=== PATIENT | female | born 1990 | race Caucasian/White ===

== ENCOUNTER → 2020-04-25 | Outpatient (REF) | payer OTHER ==
[2020-04-25 13:34] LABS: MEAN CORPUSCULAR HEMOGLOBIN 33.3 pg (27.0-33.0); MEAN CORPUSCULAR HGB CONC 34.1 g/dl (32.0-36.5); MEAN CORPUSCULAR VOLUME 97.4 fl (80.0-96.0); PLATELET COUNT, AUTOMATED 232 10^3/uL (150-450); RED BLOOD COUNT 4.21 10^6/uL (4.00-5.40); WHITE BLOOD COUNT 9.7 10^3/uL (4.0-10.0)
[2020-04-25 14:28] LABS: HEPATITIS C VIRUS ABY INDEX 0.1 INDEX (<0.8); HIV 1&2 SCREEN CENTAUR NEGATIVE (NEGATIVE)
== END ==
LOC: M PLALAB 10:47
PROVIDERS: ATTEND Advanced Practice Midwife
DX: Z3A.09 9 weeks gestation of pregnancy (principal)

== ENCOUNTER → 2020-05-24 | Outpatient (CLI) | payer OTHER | LOC: M PLALAB 09:48 | PROVIDERS: ATTEND Advanced Practice Midwife | DX: Z34.82 Encounter for supervision of other normal pregnancy, second trimester (principal); Z3A.00 Weeks of gestation of pregnancy not specified | CPT/HCPCS: 36415; 90686; G0123; G0463 ==

== ENCOUNTER → 2020-07-02 | Outpatient (CLI) | payer OTHER ==
--- NOTE | 2020-07-03 09:14 | REP ---
INDICATION: ANATOMY COMPARISON: None. TECHNIQUE: Transabdominal obstetrical ultrasound with color Doppler evaluation. FINDINGS: Examination demonstrates a single live intrauterine in cephalic presentation. motion is identified by technologist. Placenta is noted anterior and grade 1 without evidence for placenta previa or abruption. Amniotic fluid volume is normal. Cervix measures 3.8 cm in length and appears closed.. Gestational age by current measurements 19 weeks 4 days with ESPERANZA 11/22/2020. FHR equals 146 beats per minute. BPD: 4.5 cm 19 weeks 4 days HC: 16.7 cm there is 19 weeks 3 days AC: 14.0 cm 19 weeks 3 days FL: 3.2 cm 20 weeks 0 days HL: 3.0 cm there is 19 weeks 6 days HC/AC: 1.19 Estimated weight 306 grams (48thpercentile). Anatomical assessment demonstrates normal structures including cranium, choroid plexus, cavum, cerebellum/posterior fossa, facial features, lungs, four-chamber heart/ventricular outflow tracts, diaphragm, stomach, cord insertion/three-vessel cord, kidneys/bladder, spine, and extremities. IMPRESSION: Single live intrauterine in cephalic presentation demonstrating appropriate estimated weight. Anatomical assessment is complete and normal. No gross abnormalities are identified. <Electronically signed by Deo No > 07/03/20 [id number]
== END ==
LOC: M WHC 10:55
PROVIDERS: ATTEND Advanced Practice Midwife
DX: Z34.92 Encounter for supervision of normal pregnancy, unspecified, second trimester (principal); Z3A.19 19 weeks gestation of pregnancy

== ENCOUNTER → 2020-08-20 | Outpatient (REF) | payer OTHER ==
[2020-08-20 14:09] LABS: HEMOGLOBIN 12.8 g/dl (12.0-15.5); MEAN CORPUSCULAR HEMOGLOBIN 32.4 pg (27.0-33.0); MEAN CORPUSCULAR HGB CONC 32.8 g/dl (32.0-36.5); MEAN CORPUSCULAR VOLUME 98.7 fl (80.0-96.0); PLATELET COUNT, AUTOMATED 204 10^3/uL (150-450); RED BLOOD COUNT 3.95 10^6/uL (4.00-5.40); WHITE BLOOD COUNT 11.8 10^3/uL (4.0-10.0)
== END ==
LOC: M PLALAB 08:23
PROVIDERS: ATTEND Specialist
DX: Z00.00 Encounter for general adult medical examination without abnormal findings (principal)

== ENCOUNTER → 2020-09-18 | Outpatient (CLI) | payer OTHER ==
--- NOTE | 2020-09-19 07:58 | REP ---
INDICATION: HYPERTENSION/GROWTH COMPARISON: 07/02/2020 TECHNIQUE: Transabdominal obstetrical ultrasound with color Doppler evaluation. FINDINGS: Examination demonstrates a single live intrauterine in cephalic presentation. motion is identified by technologist. Placenta is noted anterior and grade 1 without evidence for placenta previa or abruption. Amniotic fluid volume is normal. Cervix measures 4.0 cm in length and appears closed.. Gestational age by LMP and 1st U/S 30 weeks 5 days with ESPERANZA 11/22/2020. Gestational age by current measurements 30 weeks 2 days with ESPERANZA 11/25/2020. FHR equals 140 beats per minute. Estimated weight 1536 grams (27thpercentile). DEBO: 19.2 cm (8.8-23.7) Umbilical artery SD ratio: 2.44, 2.76 (1.91-4.01) IMPRESSION: Single live intrauterine in cephalic presentation demonstrating appropriate estimated weight and growth. <Electronically signed by Deo No > 09/19/20 [id number]
== END ==
LOC: M WHC 13:57
PROVIDERS: ATTEND Obstetrics & Gynecology
DX: O10.913 Unspecified pre-existing hypertension complicating pregnancy, third trimester (principal); Z3A.00 Weeks of gestation of pregnancy not specified

== ENCOUNTER → 2020-10-08 | Outpatient (CLI) | payer OTHER ==
--- NOTE | 2020-10-08 08:39 | REP ---
INDICATION: ESSENTIAL HYPERTENSION,GROWTH,DEBO. TECHNIQUE: Transabdominal FINDINGS: Multiple ultrasonographic images of the gravid uterus shows a single living intrauterine gestation in the cephalic presentation. Doppler interrogation of the heart shows a heart rate of 133 beats per minute. Doppler interrogation of the umbilical artery shows an AB ratio of 2.73. This is within the normal range. The placenta is anterior and not low lying. The calculated amniotic fluid index is 14.5 with an expected range 8.2 to 24.6 BPD: 8.5 cm 34 weeks 2 days HC: 31.0 cm 34 weeks 4 days AC: 29.2 cm 33 weeks 1 day FL: 6.4 cm 32 weeks 6 days Estimated weight is 2171 g which is at the 39th percentile for 33 week 3 day gestational age. IMPRESSION: Single living intrauterine gestation as described above with an estimated gestational age of 33 weeks 5 days via composite criteria and an estimated date of delivery of 11/21/2020 by today's exam. <Electronically signed by Charanjit Conti > 10/08/20 [id number]
== END ==
LOC: M WHC 06:59
PROVIDERS: ATTEND Advanced Practice Midwife
DX: O10.013 Pre-existing essential hypertension complicating pregnancy, third trimester (principal)

== ENCOUNTER → 2020-10-23 | Outpatient (REF) | payer OTHER | LOC: M SFHCWAGY 12:53 | PROVIDERS: ATTEND Advanced Practice Midwife | DX: O10.019 Pre-existing essential hypertension complicating pregnancy, unspecified trimester (principal); Z3A.00 Weeks of gestation of pregnancy not specified ==

== ENCOUNTER → 2020-10-29 | Outpatient (CLI) | payer OTHER ==
--- NOTE | 2020-10-29 19:37 | REP ---
INDICATION: GROWTH/DEBO. ESPERANZA 23 November 2020. COMPARISON: Comparison study October 08, 2020.. TECHNIQUE: Transabdominal obstetric sonography. FINDINGS: Scanning through the gravid uterus demonstrates a viable single intrauterine gestation in cephalic lie. motion is observed and heart rate is recorded at 138 beats per minute. A anterior placenta is seen, grade 1, without evidence of placenta previa. Closed cervical length is measured at 3.4 cm transabdominally. No extrauterine abnormality is observed. Amniotic fluid is subjectively normal. DEBO is normal at 17.8 cm.. . Biometry chart: BPD 8.8 cm, 35 weeks 5 days Head circumference 31.7 cm, 35 weeks 5 days Abdominal circumference 32.3 cm, 36 weeks 2 days Femur length 6.9 cm, 35 weeks 2 days Humeral length 6.1 cm, 35 weeks 1 day HC AC ratio normal and 0.98 Cephalic index normal 0.79 Estimated weight 2786 g, 6 lb 2 oz, 38th percentile for 36 weeks 3 days SD ratio in the umbilical cord artery by Doppler is normal at 2.87. IMPRESSION: Viable single intrauterine gestation at 35 weeks 4 days by today's composite sonographic criteria. ESPERANZA by today's sonography November 29, 2020.. No complication identified. Expected gestational age estimate based on given ESPERANZA of November 23, 2020 is 36 weeks 3 days. <Electronically signed by Lamine Addison > 10/29/20 193
== END ==
LOC: M WHC 07:43
PROVIDERS: ATTEND Advanced Practice Midwife
DX: O10.013 Pre-existing essential hypertension complicating pregnancy, third trimester (principal); Z3A.36 36 weeks gestation of pregnancy

== ENCOUNTER → 2020-11-02 | Outpatient (CLI) | payer OTHER | LOC: M LABSMTC 09:35 | PROVIDERS: ATTEND Specialist | DX: Z20.828 Contact with and (suspected) exposure to other viral communicable diseases (principal); Z11.59 Encounter for screening for other viral diseases ==

== ENCOUNTER 2020-11-10 10:03 | Inpatient (IN) | payer OTHER ==
[~2020-11-10] VITALS: Ht 162.6 cm; Wt 107.0 kg
[2020-11-10] VITALS (10 sets, daily range): BP systolic 123–137; BP diastolic 69–91
[2020-11-10 10:46] LABS: HEMATOCRIT 36.5 % (36.0-47.0); HEMOGLOBIN 12.6 g/dl (12.0-15.5); MEAN CORPUSCULAR HEMOGLOBIN 31.8 pg (27.0-33.0); MEAN CORPUSCULAR HGB CONC 34.5 g/dl (32.0-36.5); MEAN CORPUSCULAR VOLUME 92.2 fl (80.0-96.0); PLATELET COUNT, AUTOMATED 218 10^3/uL (150-450); RED BLOOD COUNT 3.96 10^6/uL (4.00-5.40)
[2020-11-10] MEDS ORDERED: PRENTAB9 PO (10:53)
[2020-11-10] MEDS ORDERED: OMEP10CASR PO (10:54)
[2020-11-10] MEDS ORDERED: LABE100T5 PO (10:54)
[2020-11-10] MEDS ORDERED: ASPI81CH33 PO (10:54)
[2020-11-10] MEDS ORDERED: LACTATED RINGER'S 1000 ML IV STA (12:35)
[2020-11-10] MEDS ORDERED: OXYTOCIN DRIP 30 UNITS in IV 1 EA IV PRN ×6 (12:35)
[2020-11-10] MEDS ORDERED: OXYTOCIN INJ 10 UNITS/ML VIAL (J2590) IV PRN (12:35)
[2020-11-10] MEDS ORDERED: TRANEXAMIC ACID INJection 1,000 MG in NS 100 ML IV PRN (12:35)
[2020-11-10] MEDS ORDERED: LR 1,000 ML IV SCH (12:35)
[2020-11-10] MEDS ORDERED: LIDOCAINE 1% MDV 20ML VIAL INFIL PRN (12:35)
[2020-11-10] MEDS ORDERED: OXYTOCIN INJ 10 UNITS/ML VIAL (J2590) IM PRN (12:35)
[2020-11-10] MEDS ORDERED: CARBOPROST TROMETHAMINE 250 MCG/ML AMP IM PRN (12:35)
[2020-11-10] MEDS: miSOPROStol 50MCG 1/2 TABLET SL SCH ×2 (12:50→20:00)
--- NOTE | 2020-11-10 12:59 | HPEPDOC ---
Obstetrical History & Physical General Date of Admission November 10, 2020 at 10:03 History of Present Illness 30-year-old at 38+1 weeks gestation. Presents for an induction of labor. Indication for induction: CHTN. She denies vaginal bleeding, loss of fluid or painful, frequent uterine contractions. She reports regular movement. She denies headache, visual changes, right upper quadrant pain, shortness of breath or chest pain. 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 OB: G1 Sochx: No tobacco, alcohol or drug use FamHx: HTN labs: Blood type B+ , antibody screen negative, HepBsAg neg, HIV neg, rubella immune, Hep C antibody negative, RPR nonreactive, CT/GC neg, urine cu lture negative, 1 hour glucose challenge test , GBS negative Imaging: No or placental anomalies, EFW: 38th percentile on 10/29/20 Vital Signs Date Time Temp Pulse Resp B/P (MAP) Pulse Ox O2 Delivery O2 Flow Rate FiO2 11/10/20 10:18 98.1 117 18 135/86 (102) Past Medical History Allergies Coded Allergies: sulfamethoxazole (Verified Allergy, Severe, hives, 11/10/20) trimethoprim (Verified Allergy, Severe, hives, 11/10/20) Medications Scheduled Aspirin (Aspirin) 81 Mg Tab.chew, 81 MG PO DAILY for pain Labetalol HCl (Labetalol HCl) 100 Mg Tablet, 1 TAB PO BID Omeprazole (Omeprazole) 10 Mg Capsule.dr, 10 MG PO DAILY No.137/Iron/Folic Acd ( Vitamin Tablet) 1 Each Tablet, 1 TAB PO DAILY Physical Examination Physical Examination GENERAL: Alert and oriented times three. ABDOMEN: Gravid and non-tender to touch. FETUS: Is vertex (VTX) by sterile vaginal examination (SVE), fetus is vertex (VTX) by Ernesto. HEART RATE: Regular rate and rhythm. LUNGS: Clear to auscultation (CTA). EXTREMITIES: No edema. No clonus. SVE: 1 cm, 25% effaced, -3 station, posterior. No bloody show, cephalic, intact EFM: Category 1 [place]: Irregular/rare contraction pattern Vital Signs/I&O Vital Signs Date Time Temp Pulse Resp B/P (MAP) Pulse Ox O2 Delivery O2 Flow Rate FiO2 11/10/20 10:18 98.1 117 18 135/86 (102) Laboratory Data 24H LABS Laboratory Tests 2 11/10/20 10:14: Serology Scanned Report Hepatitis B Testing 11/10/20 10:32: Nucleated Red Blood Cells % (auto) 0.0 CBC/BMP Laboratory Tests 11/10/20 10:32 Assessment/Plan Assessment 30-year-old G1, P0 at 38+1weeks gestation. Chronic hypertension. Reassuring status. Plan Admit and orient. [facility] Consultant and consent. Labs with preeclamptic panel Counseled on induction of labor; start with cervical ripening Anticipate C-S as appropriate. JENNIFER DAVENPORT DO November 10, 2020 12:59
[2020-11-10 19:29] LABS: ALT/SGPT 21 U/L (12-78); BILIRUBIN,TOTAL 0.4 MG/DL (0.2-1.0); CREATININE FOR GFR 0.58 MG/DL (0.55-1.30); GLOMERULAR FILTRATION RATE > 60.0 (>60); LDH LACTATE DEHYDROGENASE 225 U/L (84-246); URIC ACID 4.5 MG/DL (2.6-6.0)
[2020-11-10] MEDS: LABETALOL 100MG TAB PO SCH (20:59)
[2020-11-11] VITALS (28 sets, daily range): BP systolic 113–138; BP diastolic 60–90
[2020-11-11] MEDS: miSOPROStol 50MCG 1/2 TABLET SL SCH ×3 (00:06→05:00)
--- NOTE | 2020-11-11 06:04 | IPNPDOC ---
Obstetrical Progress Note Date of Service November 11, 2020 Subjective Patient starting to feel more uncomfortable with contractions. She has been receiving misoprostol for cervical ripening. Last dose around 0430 this AM. Objective Vital Signs Date Time Temp Pulse Resp B/P (MAP) Pulse Ox O2 Delivery O2 Flow Rate FiO2 11/11/20 01:59 80 18 117/60 (79) 11/11/20 00:02 96.8 Assessment Heart Rate Tracing: Category I Tocometer Contractions: Yes Frequency: every 2-5 min. Sterile Vaginal Examination Dilation: 3 cm Effacement (%): 50% Station: -3 Cervical Consistency: Soft Cervical Position: Middle Postion/Presentation: Cephalic presentation Assessment and Plan Status: Reassuring Anticipate: Vaginal Delivery Additional Comments Reassuring maternal and status. Start Pitocin. JENNIFER DAVENPORT DO November 11, 2020 06:04
[2020-11-11] MEDS ORDERED: OXYTOCIN DRIP 30 UNITS in IV 1 EA IV SCH (06:05)
[2020-11-11] MEDS: LABETALOL 100MG TAB PO SCH ×2 (08:48→20:53)
[2020-11-11] MEDS ORDERED: OMEPRAZOLE 20 MG CAP PO SCH (09:00)
[2020-11-11 13:56] LABS: HEMATOCRIT 37.3 % (36.0-47.0); HEMOGLOBIN 12.7 g/dl (12.0-15.5); MEAN CORPUSCULAR HEMOGLOBIN 31.3 pg (27.0-33.0); MEAN CORPUSCULAR VOLUME 91.9 fl (80.0-96.0); PLATELET COUNT, AUTOMATED 218 10^3/uL (150-450); RED BLOOD COUNT 4.06 10^6/uL (4.00-5.40); WHITE BLOOD COUNT 16.6 10^3/uL (4.0-10.0)
[2020-11-11] MEDS ORDERED: FENTANYL 2MCG/ML ROPIVACAINE 0.2% IN 0.9% NACL 100ML IVBAG As Ordered ONE (14:13)
[2020-11-11] MEDS ORDERED: diphenhydrAMINE 50MG/ML VIAL (J1200) IV PRN (14:30)
[2020-11-11] MEDS ORDERED: ePHEDrine SULFATE 25 MG/5 ML(5MG/ML) SYRINGE IV PRN (14:30)
[2020-11-11] MEDS ORDERED: FENTANYL/ROPIVACAINE/NACL BAG 100 ML EPIDURAL SCH (14:30)
[2020-11-11] MEDS ORDERED: EPIDURAL/PCA KEYS XX PRN (14:30)
[2020-11-11] MEDS ORDERED: REFRIGERATOR IV KEYS XX PRN (14:30)
[2020-11-11] MEDS ORDERED: ONDANSETRON 4MG/2ML VIAL IV PRN (14:30)
[2020-11-11] MEDS ORDERED: EPIDURAL COMMENT XX SCH (14:30)
[2020-11-11] MEDS ORDERED: LACTATED RINGER'S 1000 ML IV PRN (14:30)
[2020-11-11] MEDS ORDERED: NALOXONE INJ 0.4MG/1ML VIAL (J2310 PER 1MG) IV PRN (14:30)
--- NOTE | 2020-11-11 18:50 | IPNPDOC ---
Obstetrical Progress Note Date of Service November 11, 2020 Subjective Patient reports she is comfortable with her epidural. Objective Vital Signs Date Time Temp Pulse Resp B/P (MAP) Pulse Ox O2 Delivery O2 Flow Rate FiO2 11/11/20 13:27 80 18 132/82 (99) 11/11/20 10:16 98.4 Assessment Heart Rate (FHR): 145 Variability: Moderate Accelerations: None Decelerations: None Heart Rate Tracing: Category I Tocometer Contractions: Yes Frequency: regular, other (2-4 minutes) Sterile Vaginal Examination Dilation: 9 cm (anterior lip) Effacement (%): 100% Station: 0 Postion/Presentation: Cephalic presentation Assessment and Plan Age: 30 : 1 Term: 0 Pre-term: 0 Abortions: 0 Livin EGA at Admission: 38.2 Status: Reassuring Group B Streptococcus: Negative Anticipate: Vaginal Delivery Additional Comments IV Pitocin at 12 mu/min. KOKO MELTON CNM November 11, 2020 18:50
--- NOTE | 2020-11-11 22:24 | DNPDOC ---
[facility] Delivery Note Delivery Note DATE OF DELIVERY: 11/11/20 at 2147 PREDELIVERY DIAGNOSIS: 38-2/7 weeks' gestation and induction of labor for CHTN POST DELIVERY DIAGNOSIS: Delivered. PROCEDURE: Spontaneous vaginal delivery. FERRYBOAT PILOT: Koko Ruiz CNM, DINORAH ANESTHESIA: epidural. ESTIMATED BLOOD LOSS: 200 mL. FINDINGS: 6 pounds, 2720 grams; male , Score 8/9, nuchal cord times x1 loose, CHTN. DELIVERY SUMMARY: Massimo is now a who presented to L&D at 38.1 weeks gestation for and induction of labor for CHTN. She is currently taking Labetalol 100 mg BID. She received Cytotec and IV Pitocin for induction. The patient requested an epidural for pain management. She spontaneously ruptured at 1915 to a moderate amount of clear fluid and an AROM was done at 1933. She progressed to fully dilated at 1933. She had no urge to push at that time and was allowed to labor down. She pushed to a living male at 2146 in the LOP position without restitution. A nuchal cord was noted. The anterior shoulder delivered spontaneously and the corpus immediately followed. The baby was placed [id number] active and crying. The cord was clamped x2 and cut by the grandmother. The placenta delivered spontaneously and intact at 2152. Uterine hemostasis was achieved via rapid infusion of IV Pitocin and fundal massage. The vagina, cervix, and perineum was inspected and found to be intact. Mom plans to breastfeed. They are naming him Mccord. All counts of instruments and sponges are correct. Both mom and baby are in stable condition. KOKO RUIZ CNM November 11, 2020 22:24
[2020-11-12 02:00] VITALS: BP 114/60
[2020-11-12] MEDS ORDERED: DIBUCAINE 1% OINTMENT 30GM TOP PRN (04:30)
[2020-11-12] MEDS ORDERED: IBUPROFEN 600MG TAB PO PRN (04:30)
[2020-11-12] MEDS ORDERED: RHOGAM 300 MCG (1500 IU) INJ (J2790) IM SCH (04:30)
[2020-11-12] MEDS ORDERED: ANUSOL HC CREAM 30GM TOP PRN (04:30)
[2020-11-12] MEDS ORDERED: MEASLES,MUMPS,RUBELLA VACCINE INJ (MMR-II) (90707) SC SCH (04:30)
[2020-11-12] MEDS ORDERED: METHYLERGONOVINE MALEATE 0.2 MG TAB PO PRN (04:30)
[2020-11-12] MEDS ORDERED: ACETAMINOPHEN 500 MG TAB PO PRN (04:30)
[2020-11-12] MEDS ORDERED: DOCUSATE SODIUM 100MG CAPSULE PO PRN (04:30)
[2020-11-12] MEDS ORDERED: ACETAMINOPHEN TAB 650MG DOSE (2X325MG) PO PRN (04:30)
[2020-11-12] MEDS: IBUPROFEN 800 MG TAB PO PRN (05:43)
[2020-11-12 06:00] VITALS: BP 110/53
[2020-11-12] MEDS ORDERED: BOOSTRIX/ADACEL VACCINE (DIPHTH/PERTUSS/ACELL/TETANUS) 0.5ML SYR IM ONE (09:00)
[2020-11-12] MEDS: LABETALOL 100MG TAB PO SCH ×2 (09:05→20:51)
[2020-11-12] MEDS: PRENATAL VITAMINS CHEWABLE TABLET PO SCH (09:05)
--- NOTE | 2020-11-12 09:24 | IPNPDOC ---
Progress Note Date of Service: Nov 12, 2020 Day#: 1 Progress Note SUBJECT: Massimo is a 30-year-old who is a who presented to L&D for an induction of labor for CHTN. She had a vaginal delivery of a living male. She reports she is breast and formula feeding. States she is ambulating, voiding and eating a regular diet. OBJECTIVE: VITAL SIGNS: Within normal limits, afebrile. Alert and oriented times three. Breath sounds clear to auscultation Abdomen: Fundus firm at U-2. Soft, NTTP. Minimal lochia. ASSESSMENT: Day 1 , CHTN PLAN: 1. Continue supportive nursing care. 2. Anticipate discharge to home tomorrow. VS, I&O, 24H, Fishbone Vital Signs/I&O Vital Signs Date Time Temp Pulse Resp B/P (MAP) Pulse Ox O2 Delivery O2 Flow Rate FiO2 11/12/20 09:05 78 110/53 11/12/20 06:00 98.2 16 99 Room Air I&O- Last 24 Hours up to 6 AM 11/12/20 06:00 Intake Total 776 ml Output Total 1500 ml Balance -724 ml Laboratory Data 24H LABS Laboratory Tests 2 11/11/20 13:48: Nucleated Red Blood Cells % (auto) 0.0 CBC/BMP Laboratory Tests 11/11/20 13:48 KOKO MELTON CNM Nov 12, 2020 09:23
[2020-11-12 10:03] VITALS: BP 122/64
[2020-11-12 14:00] VITALS: BP 119/72
[2020-11-12 17:52] VITALS: BP 120/77
[2020-11-12 20:53] VITALS: BP 143/81
[2020-11-13 02:00] VITALS: BP 114/55
[2020-11-13] MEDS: IBUPROFEN 800 MG TAB PO PRN (05:28)
[2020-11-13 06:00] VITALS: BP 140/90
[2020-11-13] MEDS ORDERED: ACET-683 PO (07:17)
[2020-11-13] MEDS ORDERED: IBUP80TA PO (07:17)
[2020-11-13] MEDS ORDERED: BOOSTRIX/ADACEL VACCINE (DIPHTH/PERTUSS/ACELL/TETANUS) 0.5ML SYR IM ONE (08:25)
[2020-11-13] MEDS: PRENATAL VITAMINS CHEWABLE TABLET PO SCH (09:19)
[2020-11-13 09:30] VITALS: BP 118/71
[2020-11-13 10:00] VITALS: BP 116/74
[2020-11-13 10:24] VITALS: BP 118/71
[2020-11-13] MEDS: LABETALOL 100MG TAB PO SCH (10:24)
== END 2020-11-13 12:11 | disposition home or self-care (01) | DRG 807 ==
LOC: M LDI 10:03 → M OBS 11-11 23:40
PROVIDERS: ADMIT Obstetrics & Gynecology; ATTEND Obstetrics & Gynecology
PROC: 3E033VJ Introduction of Other Hormone into Peripheral Vein, Percutaneous Approach (ICD-10-PCS; 2020-11-10)
PROC: 10E0XZZ Delivery of Products of Conception, External Approach (ICD-10-PCS; principal; 2020-11-11)
PROC: 10907ZC Drainage of Amniotic Fluid, Therapeutic from Products of Conception, Via Natural or Artificial Opening (ICD-10-PCS; 2020-11-11)
DX: O10.92 Unspecified pre-existing hypertension complicating childbirth (principal); Z37.0 Single live birth; Z3A.38 38 weeks gestation of pregnancy; Z88.2 Allergy status to sulfonamides; Z88.8 Allergy status to other drugs, medicaments and biological substances; O69.81X0 Labor and delivery complicated by cord around neck, without compression, not applicable or unspecified

== ENCOUNTER → 2021-07-03 | Outpatient (REF) | payer OTHER ==
[~2021-07-03] MED LIST: ACET-683 PO; ASPI81CH33 PO; IBUP80TA PO; LABE100T5 PO; OMEP10CASR PO; PRENTAB9 PO
== END ==
LOC: M SFHCWAGY 12:45
PROVIDERS: ATTEND Advanced Practice Midwife
DX: Z12.4 Encounter for screening for malignant neoplasm of cervix (principal); R87.610 Atypical squamous cells of undetermined significance on cytologic smear of cervix (ASC-US)
CPT/HCPCS: 87624; G0123; G0463

== ENCOUNTER → 2022-11-27 | Outpatient (REF) | payer OTHER ==
[~2022-11-27] MED LIST changes: -LABE100T5 PO; +LABE100T71 PO
== END ==
LOC: M PLALAB 14:55
PROVIDERS: ATTEND Advanced Practice Midwife
DX: Z12.4 Encounter for screening for malignant neoplasm of cervix (principal)
CPT/HCPCS: 87624; G0123